=== PATIENT | male | born 1990 | race Asian ===

== ENCOUNTER 2024-08-08 21:19 | Emergency (ER) | payer SELFPAY ==
[~2024-08-08] VITALS: Ht 170.2 cm; Wt 68.5 kg
[2024-08-08 21:57] VITALS: BP 141/91; PULSE 68; RESP 16; TEMP 97.6; O2SAT 99
[2024-08-08] MEDS ORDERED: LID5T TP (22:59)
[2024-08-08] MEDS: KETOROLAC 30 MG/ML VIAL IM ONE (23:09)
[2024-08-08] MEDS: ACETAMINOPHEN EXTRA STRENGTH 500 MG TAB PO ONE (23:10)
[2024-08-08] MEDS: LIDOCAINE 5% 1 EA PATCH TP ONE (23:10)
== END 2024-08-08 23:13 | disposition home or self-care (01) ==
LOC: MED 21:19
DX: M25.552 Pain in left hip (principal); R03.0 Elevated blood-pressure reading, without diagnosis of hypertension
CPT/HCPCS: 73502; 96372; 99283; J1885